=== PATIENT | male | born 1995 | race Hispanic/Latino ===

== ENCOUNTER 2018-08-04 20:32 | Emergency (ER) | payer SELFPAY ==
[2018-08-04] MEDS ORDERED: Metoclopramide HCl 10 MG/2 ML VIAL ONE (21:06)
[2018-08-04] MEDS ORDERED: diphenhydrAMINE 50 MG/ML VIAL ONE (21:06)
[2018-08-04] MEDS ORDERED: Ketorolac Tromethamine 30 MG/ML VIAL ONE (22:29)
== END 2018-08-04 23:35 | disposition home or self-care (01) ==
LOC: ERS 20:32
DX: G43.809 Other migraine, not intractable, without status migrainosus (principal); F41.9 Anxiety disorder, unspecified; F17.210 Nicotine dependence, cigarettes, uncomplicated
CPT/HCPCS: 96365; 96375; J1200; J1885; J2765